=== PATIENT | female | born 2000 | race American Indian/Alaskan Native ===

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

== ENCOUNTER 2022-06-26 16:56 | Emergency (ER) | payer MEDICAID ==
[2022-06-26 20:27] LABS: Basophils % (Auto) 0.3 % (0.0-1.8); Eosinophils % (Auto) 0.4 % (0.0-4.3); Lymphocytes # (Auto) 0.8 K/mm3 (1.2-5.4); Lymphocytes % (Auto) 7.5 % (13.4-35.0); Mean Corpuscular HGB Conc 35 % (30-34); Mean Corpuscular Volume 88 fl (79-97); Monocytes # (Auto) 0.9 K/mm3 (0.0-0.8); Monocytes % (Auto) 7.8 % (0.0-7.3); Platelet Count 265 K/mm3 (140-440); Red Blood Count 4.58 M/mm3 (3.65-5.03); Red Cell Distribution Width 12.8 % (13.2-15.2)
[2022-06-26 20:52] LABS: Alanine Aminotransferase 7 units/L (7-56); Albumin 4.9 g/dL (3.9-5); BUN/Creatinine Ratio 13; Blood Urea Nitrogen 10 mg/dL (7-17); Calcium 10.1 mg/dL (8.4-10.2); Hemolysis Index 8
[2022-06-27 00:03] VITALS: BP 108/63
[2022-06-27] MEDS ORDERED: ONDANSETRON 4 MG ODT TAB PO ONE (01:33)
[2022-06-27] MEDS ORDERED: KETOROLAC 30 MG/1 ML INJ IM ONE (01:33)
[2022-06-27] MEDS ORDERED: HYDROcodone/ACETAMINOPHEN 5-325 MG TAB PO ONE (01:33)
--- NOTE | 2022-06-27 01:35 | Emergency Department Report ---
ED General Adult HPI - General Chief complaint: Nausea/Vomiting/Diarrhea Stated complaint: NAUSEA/VOMITING Time Seen by Provider: 06/27/22 01:14 Source: patient, EMS Mode of arrival: Stretcher Limitations: No Limitations - History of Present Illness Initial comments: 22-year-old female no significant past medical history reports to the ER 1 day after having general body aches with nausea and vomiting. Denies abdominal pain and no diarrhea. Patient reports no other acute symptoms. Patient reports trying to take ibms-ucg-cxjojzi medications but reports vomiting med's. Severity scale (0 -10): 10 - Related Data Previous Rx's Medication Instructions Recorded Last Taken Type Ibuprofen [Motrin] 600 mg PO Q8H PRN 6 Days #18 tablet 06/27/22 Unknown Rx Ondansetron [Zofran Odt] 4 mg PO Q12H 3 Days #6 tab.rapdis 06/27/22 Unknown Rx Allergies Allergy/AdvReac Type Severity Reaction Status Date / Time No Known Allergies Allergy Unverified 11/22/17 18:49 ED Review of Systems ROS: Stated complaint: NAUSEA/VOMITING Other details as noted in HPI Comment: All other systems reviewed and negative Gastrointestinal: nausea, vomiting. denies: abdominal pain, diarrhea Musculoskeletal: myalgia ED Past Medical Hx - Past Medical History Previous Medical History?: No Hx Asthma: Yes - Medications Home Medications: Home Medications Medication Instructions Recorded Confirmed Last Taken Type Ibuprofen [Motrin] 600 mg PO Q8H PRN 6 Days #18 tablet 06/27/22 Unknown Rx Ondansetron [Zofran Odt] 4 mg PO Q12H 3 Days #6 tab.rapdis 06/27/22 Unknown Rx ED Physical Exam - General Limitations: No Limitations General appearance: alert, in no apparent distress - Head Head exam: Present: atraumatic, normocephalic - Eye Eye exam: Present: normal appearance - ENT ENT exam: Present: mucous membranes moist, other (Nasal congestion noted) - Neck Neck exam: Present: normal inspection - Respiratory Respiratory exam: Present: normal lung sounds bilaterally, other (Patient has a nonproductive cough during exam.). Absent: respiratory distress - Cardiovascular Cardiovascular Exam: Present: regular rate, normal rhythm. Absent: systolic murmur, diastolic murmur, rubs, gallop - GI/Abdominal GI/Abdominal exam: Present: soft, normal bowel sounds. Absent: tenderness - Extremities Exam Extremities exam: Present: normal inspection - Back Exam Back exam: Present: normal inspection - Neurological Exam Neurological exam: Present: alert, oriented X3 - Psychiatric Psychiatric exam: Present: normal affect, normal mood - Skin Skin exam: Present: warm, dry, intact, normal color. Absent: rash ED Course Vital Signs 06/26/22 06/27/22 17:17 00:02 Temperature 99 F Pulse Rate 104 H 106 H Respiratory 18 22 Rate Blood Pressure 124/75 108/63 [Left] O2 Sat by Pulse 98 99 Oximetry ED Medical Decision Making - Lab Data Result diagrams: 06/26/22 20:10 06/26/22 20:09 - Medical Decision Making 22-year-old female with nausea and vomiting reports to the ER after having symptoms for 1 day. Patient also endorses overall body aches. Patient reports trying to take sixm-uzl-zriijzj medication for symptoms but unable to hold medication down due to vomiting. Patient denies any other symptoms at this time. On physical exam patient has nasal congestion and nonproductive cough. No other acute clinical findings noted. Lungs clear to auscultation. Labs unremarkable. No imaging is needed at this time. Patient has a decrease in pain and nausea after medication. Patient informed she is likely having a URI versus acute viral syndrome. Patient agrees with plan of care and verbalized understanding. Patient informed to take ixci-nrh-gutqubd medications for her symptoms while she is on her nausea medication. Patient informed symptoms are to get worse to report back to the ER. Vital Signs 06/26/22 06/27/22 17:17 00:02 Temperature 99 F Pulse Rate 104 H 106 H Respiratory 18 22 Rate Blood Pressure 124/75 108/63 [Left] O2 Sat by Pulse 98 99 Oximetry Lab Results 06/26/22 06/26/22 06/26/22 Range/Units 20:09 20:09 20:10 WBC 11.2 H (4.5-11.0) K/mm3 RBC 4.58 (3.65-5.03) M/mm3 Hgb 14.0 (10.1-14.3) gm/dl Hct 40.0 (30.3-42.9) % MCV 88 (79-97) fl MCH 31 (28-32) pg MCHC 35 H (30-34) % RDW 12.8 L (13.2-15.2) % Plt Count 265 (140-440) K/mm3 Lymph % (Auto) 7.5 L (13.4-35.0) % [place] % (Auto) 7.8 H (0.0-7.3) % Eos % (Auto) 0.4 (0.0-4.3) % Baso % (Auto) 0.3 (0.0-1.8) % Lymph # (Auto) 0.8 L (1.2-5.4) K/mm3 [place] # (Auto) 0.9 H (0.0-0.8) K/mm3 Eos # (Auto) 0.0 (0.0-0.4) K/mm3 Baso # (Auto) 0.0 (0.0-0.1) K/mm3 Seg Neutrophils % 84.0 H (40.0-70.0) % Seg Neutrophils # 9.4 H (1.8-7.7) K/mm3 Sodium 136 L (137-145) mmol/L Potassium 3.8 (3.6-5.0) mmol/L Chloride 97.5 L (98-107) mmol/L Carbon Dioxide 26 (22-30) mmol/L Anion Gap 16 mmol/L BUN 10 (7-17) mg/dL Creatinine 0.8 (0.6-1.2) mg/dL Estimated GFR > 60 ml/min BUN/Creatinine Ratio 13 % Glucose 82 (65-100) mg/dL Calcium 10.1 (8.4-10.2) mg/dL Total Bilirubin 0.30 (0.1-1.2) mg/dL AST 14 (5-40) units/L ALT 7 (7-56) units/L Alkaline Phosphatase 70 (35-129) units/L Total Protein 7.6 (6.3-8.2) g/dL Albumin 4.9 (3.9-5) g/dL Albumin/Globulin Ratio 1.8 % Lipase 13 (13-60) units/L HCG, Qual Negative (Negative) Critical care attestation.: If time is entered above; I have spent that time in minutes in the direct care of this critically ill patient, excluding procedure time. ED Disposition Clinical Impression: Generalized body aches Nausea & vomiting Qualifiers: Vomiting type: unspecified Qualified Code(s): R11.2 - Nausea with vomiting, unspecified URI (upper respiratory infection) Qualifiers: URI type: unspecified URI Qualified Code(s): J06.9 - Acute upper respiratory infection, unspecified Disposition: 01 HOME / SELF CARE / HOMELESS Is pt being admited?: No Condition: Stable Instructions: Muscle Pain, Adult, Nausea and Vomiting, Adult, Musculoskeletal Pain Prescriptions: Ibuprofen [Motrin] 600 mg PO Q8H PRN 6 Days #18 tablet PRN Reason: Pain Ondansetron [Zofran Odt] 4 mg PO Q12H 3 Days #6 tab.rapdis Referrals: DONAVAN ALEX MD [Primary Care Provider] - 3-5 Days
[2022-06-27 04:35] LABS: Bacteria,Urine 1+ /HPF (Negative); Mucus,Urine 1+ /HPF
[2022-06-27 04:47] LABS: Color,Urine Yellow (Yellow)
== END 2022-06-27 02:53 | disposition home or self-care (01) ==
LOC: ED 16:56
DX: R11.2 Nausea with vomiting, unspecified (principal); M79.10 Myalgia, unspecified site; J06.9 Acute upper respiratory infection, unspecified; J45.909 Unspecified asthma, uncomplicated
CPT/HCPCS: 36415; 80053; 81001; 83690; 84703; 85025; 96372; 99284; J1885; J3490; Q0162